=== PATIENT | male | born 1985 | race Caucasian/White ===

== ENCOUNTER 2017-12-14 21:19 | Emergency (ER) | payer OTHER ==
[~2017-12-14] VITALS: Ht 180.3 cm; Wt 98.4 kg
[2017-12-14 21:32] VITALS: Ht 180.3 cm; Wt 98.4 kg
[2017-12-15 01:48] VITALS: BP 134/83
== END 2017-12-15 01:40 | disposition home or self-care (01) ==
LOC: ED 21:19
DX: J02.9 Acute pharyngitis, unspecified (principal)